=== PATIENT | female | born 1975 | race Caucasian/White ===

== ENCOUNTER 2018-09-12 06:37 | Inpatient (IN) ==
[2018-09-12] MEDS ORDERED: ACETAMINOPHEN 325 MG TABLET PO ONE ×2 (06:48→13:58)
[2018-09-12] MEDS ORDERED: 0.9 % SODIUM CHLORIDE 1,000 ML IV ONE (06:48)
[2018-09-12] MEDS ORDERED: METOCLOPRAMIDE 10 MG/2 ML VIAL IV ONE (07:20)
[2018-09-12 07:51] LABS: Basophils # (Auto) 0 K/mcL (0.0-0.3); Basophils % (Auto) 0.1 % (0.0-2.0); Eosinophils # (Auto) 0 K/mcL (0.0-0.7); Eosinophils % (Auto) 0.2 % (0.0-7.0); Granulocytes % (Auto) 81.1 % (38.0-78.0); Hematocrit 36.6 % (36.0-48.0); Hemoglobin 12.3 g/dL (12.0-15.0); Lymphocytes # (Auto) 0.8 K/mcL (1.5-4.8); Lymphocytes % (Auto) 6.1 % (15.5-49.0); Mean Cell Volume 91.3 fL (80.0-100.0); Mean Corpuscular HGB Conc 33.5 g/dL (31.0-36.0); Mean Platelet Volume 9.8 fL (7.4-10.4); Monocytes # (Auto) 1.6 K/mcL (0.1-0.9); Monocytes % (Auto) 12.5 % (1.0-12.0); Platelet Count 200 K/mcL (140-440); RBC 4.01 M/mcL (4.00-5.20); Red Cell Distribution Width 12.7 % (11.5-14.5); WBC 12.7 K/mcL (4.5-11.0)
--- NOTE | 2018-09-12 07:59 | XRay Report ---
CLINICAL INFORMATION: FEVER COMPARISON: None. FINDINGS: The heart size, mediastinum and pulmonary vessels are unremarkable. The lungs are clear. There are no effusions. The bones and soft tissues are within normal limits. IMPRESSION: Normal chest. Interpreted and Authenticated by: Manuel Sandoval 09/12/18
[2018-09-12 08:13] LABS: ALT/SGPT 74 U/l (0-40); AST/SGOT 119 U/l (0-37); Albumin 3.5 gm/dL (3.2-5.2); Alkaline Phosphatase 164 U/L (39-117); Bilirubin,Total 0.5 mg/dL (0.0-1.0); Blood Urea Nitrogen 5 mg/dl (6-20); Calcium 8.5 mg/dl (8.6-10.4); Carbon Dioxide 25 mmol/L (22-30); Chloride 95 mmol/L (96-108); Globulin 3.5 gm/dL (2.2-3.7); Glomerular Filtration Rate 92; Glucose 127 mg/dL (70-105); Potassium 3.4 mmol/L (3.3-5.1); Sodium 133 mmol/L (133-145)
--- NOTE | 2018-09-12 08:30 | Ultrasound Report ---
CLINICAL INFORMATION: Right flank mass COMPARISON: None. FINDINGS: There is no cyst, mass, inhomogeneous or other abnormality seen in the superficial soft tissues over the right flank IMPRESSION: Negative ultrasound. For any persistent, worrisome or recurrent signs/symptoms, suggest abdomen pelvic CT Interpreted and Authenticated by: Manuel Sandoval 09/12/18
--- NOTE | 2018-09-12 09:29 | Emergency Department Note ---
Fever HPI - General Chief Complaint: Fever Stated Complaint: fever Time Seen by Provider: 09/12/18 07:07 Source: patient Mode of arrival: ambulatory Limitations: no limitations - History of Present Illness HPI Narrative: This 43-year-old female comes emergency room with 5-day history of fever and headache with her headache becoming uncomfortable enough that she is here primarily because of this pain. She denies runny nose or sore throat. Has had a little cough. No diarrhea. [place] 4 [place]. Pain is located on the back top area. She describes it as 10 out of 10 in severity. It has had some waxing and waning. It is made it hard for her to sleep, sore to the point of not being able to lay on the back of her head very comfortably. She had a tick 2 to 3 weeks ago that was just in her hair and easily removed. It was not adherent. No known recent tick bite. No joint symptoms. Has mild light sensitivity and sound sensitivity. No dental abscess or discomfort or problems. Has felt the fevers at home with chills and sweats as well as some weakness and light headed/dizziness. REVIEW OF SYSTEMS: Denies chest pain Little cough, some sense of shortness of breath, no wheeze no phlegm No abdominal pain. Some nausea. No nausea vomiting, diarrhea, constipation, hematochezia No dysuria No back pain No anxiety or depression. - Related Data Home Medications Medication Instructions Recorded Confirmed Aleve 220Mg (Pp) 09/12/18 Tylenol 09/12/18 Allergies Allergy/AdvReac Type Severity Reaction Status Date / Time No Known Drug Allergies Allergy Unverified 09/12/18 06:41 Fever PMH - Past Medical History Medical history: Reports: other (DENIES: immunosuppressant status.). Denies: DVT, DM, migraine, seizures, thyroid disease Surgical history ED: Reports: no surgical history Psychiatric history: Denies: anxiety, depression - Social History smoking status: Current every day smoker Alcohol use: Reports: Frequently (About 1/5 every 2 weeks) Drug use: Reports: marijuana, methamphetamine. Denies: IVDU Physical Exam Limitations: no limitations General appearance: alert, in distress (Due to headache discomfort. Some ear fullness and look of consternation on her face.) Head: atraumatic, normocephalic Eye: Present: EOMI ENT: normal oropharynx, mucous membranes moist Neck: Present: trachea midline. Absent: lymphadenopathy, thyromegaly Chest: Present: symmetric chest wall rise Respiratory: Present: normal lung sounds bilaterally. Absent: respiratory distress, wheezes, stridor, accessory muscle use, prolonged expiratory phase Cardiovascular: Present: regular rate, normal rhythm. Absent: systolic murmur, diastolic murmur Abdominal: Present: soft. Absent: distention, tenderness, guarding, rebound, rigidity, organomegaly, mass Extremities: Absent: pedal edema, pretibial edema, calf tenderness Back: Present: other (Overlying the right costovertebral angle area is a soft tissue mass that is well-rounded and a single globule that is moderate-firm rubbery consistency that is partially adherent to the rib cage area, nontender without fluctuance specifically.). Absent: CVA tenderness (R), CVA tenderness (L), spinous process tenderness Neurological: Present: alert, oriented X3 Psychiatric: Present: serious, tearful (occasional ). Absent: depressed, agitated, anxious Skin: Present: warm, diaphoretic (slight or mildly) Course Vital Signs Temperature 102.7 F H 09/12/18 06:38 Pulse Rate 135 H 09/12/18 06:38 Respiratory Rate 24 H 09/12/18 06:38 Blood Pressure 112/65 09/12/18 06:38 Pulse Oximetry (%) 97 09/12/18 06:38 Temperature 102 F H 09/12/18 07:03 Pulse Rate 98 H 09/12/18 09:06 Respiratory Rate 18 09/12/18 09:06 Blood Pressure 112/64 09/12/18 09:01 Pulse Oximetry (%) 96 09/12/18 09:06 Fever - MDM Narrative Medical decision making narrative: 7:08 AM -febrile with headache patient of uncertain etiology. Will do fairly broad range of labs, and if needed imaging on her head. Regarding the neoplasm on her right flank we will start with ultrasound looking for cystic or fluid- filled lesion versus solid. 8:00 AM approximately - White count 12.7. Lactic acid 1.4. Liver function test with AST 119, ALT 74 alk phos 164 and bilirubin normal. Patient reports no history of hepatitis. UA was with some signs of infection. Chest x-ray is unremarkable. 8:20 AM - I discussed her case with radiology and with considerations for imagin g of her head. She had minimal symptoms on urinary tract therefore we will go ahead with imaging head and because of the elevated LFTs of the abdomen as well. 9 AM - above pending. Care transferred to Dr. Worthy who is coming on shift. - Medical Records Medical records reviewed: Yes I reviewed the patient's medical records. - Lab Data Lab results reviewed: Yes I reviewed the patient's lab results. Result diagrams: 09/12/18 07:00 09/12/18 06:50 Lab Results 09/12/18 09/12/18 09/12/18 Range/Units 06:50 06:50 07:00 WBC 12.7 H (4.5-11.0) K/mcL RBC 4.01 (4.00-5.20) M/mcL Hgb 12.3 (12.0-15.0) g/dL Hct 36.6 (36.0-48.0) % MCV 91.3 (80.0-100.0) fL MCH 30.6 (26.0-34.0) pg MCHC 33.5 (31.0-36.0) g/dL RDW 12.7 (11.5-14.5) % Plt Count 200 (140-440) K/mcL MPV 9.8 (7.4-10.4) fL Gran % 81.1 H (38.0-78.0) % Lymph % (Auto) 6.1 L (15.5-49.0) % [place] % (Auto) 12.5 H (1.0-12.0) % Eos % (Auto) 0.2 (0.0-7.0) % Baso % (Auto) 0.1 (0.0-2.0) % Gran # 10.3 H (1.8-8.0) K/mcL Lymph # (Auto) 0.8 L (1.5-4.8) K/mcL [place] # (Auto) 1.6 H (0.1-0.9) K/mcL Eos # (Auto) 0 (0.0-0.7) K/mcL Baso # (Auto) 0 (0.0-0.3) K/mcL VBG Lactic Acid 1.4 (0.5-2.0) mmol/L Sodium 133 (133-145) mmol/L Potassium 3.4 (3.3-5.1) mmol/L Chloride 95 L (96-108) mmol/L Carbon Dioxide 25 (22-30) mmol/L Anion Gap 13.0 (8-16) BUN 5 L (6-20) mg/dl Creatinine 0.8 (0.6-1.1) mg/dl GFR Calculation 92 Glucose 127 H (70-105) mg/dL Calcium 8.5 L (8.6-10.4) mg/dl Total Bilirubin 0.5 (0.0-1.0) mg/dL AST 119 H (0-37) U/l ALT 74 H (0-40) U/l Alkaline Phosphatase 164 H (39-117) U/L Total Protein 7.0 (5.9-8.4) gm/dL Albumin 3.5 (3.2-5.2) gm/dL Globulin 3.5 (2.2-3.7) gm/dL Albumin/Globulin Ratio 1.0 (1.0-2.3) - Radiology Data Radiology results reviewed: Yes I reviewed the patient's radiology results. Disposition Pt seen by MAINTENANCE SHOP CLERK/PA only: No Clinical Impression: Cigarette smoker, Tachycardia, Neoplasm of back Fever Qualifiers: Fever type: unspecified Qualified Code(s): R50.9 - Fever, unspecified Headache Qualifiers: Headache type: unspecified Headache chronicity pattern: acute headache Intractability: not intractable Qualified Code(s): R51 - Headache Disposition: Still a Patient Instructions: Cigarette Smoking and Your Health (GEN), How to Stop Smoking (ED), Methamphetamine Abuse (ED)
[2018-09-12] MEDS ORDERED: CIPROFLOXACIN 500 MG TABLET PO ONE (09:30)
[2018-09-12 09:35] LABS: Appearance,Urine CLOUDY; Bacteria,Urine MOD /hpf (0); Bilirubin,Urine NEG (NEG); Color,Urine YELLOW; Culture Indicated,Urine NO; Glucose,Urine (UA) NEGATIVE (NEG); Ketones,Urine NEG (NEG); Leukocyte Esterase,Urine 500 /uL (NEG); Mucus,Urine FEW /hpf (0); Nitrate,Urine POS (NEG); Protein,Urine 30 mg/dL (NEG); Specific Gravity,Urine 1.006 (1.000-1.035); Urine Amorphous Crystals FEW /hpf (0); Urine Blood 0.2 mg/dL (<0.03); Urine RBC 1 /hpf (0-1); Urine Squamous Epithelial Cell 9 /hpf (0-4); Urine WBC > 182 /hpf (0-4); Urobilinogen,Urine NEG (NEG)
--- NOTE | 2018-09-12 10:17 | Cat Scan Report ---
CLINICAL INFORMATION: Fever and headache COMPARISON: None. TECHNIQUE: 2.5 mm helical slices were obtained in the skull base to vertex. Following reconstruction, axial reformatted images were reviewed at bone and parenchymal windows. The exam was performed using radiation dose optimization techniques including, but not limited to, automated exposure control, adjustment of the mA and/or kV according to patient size and use of iterative reconstruction technique. FINDINGS: The ventricles, sulci, fissures, and cisterns are normal in size and configuration. No extra-axial fluid collections are identified. The cerebrum, brainstem and cerebellum are unremarkable. There is no evidence of hemorrhage, mass effect, or edema. Bone windows show no osseous abnormality. The frontal, ethmoid and sphenoid air cells are clear. Maxillary sinuses not visualized as at the expected standard head CT IMPRESSION: Normal head CT without contrast. Interpreted and Authenticated by: Manuel Sandoval 09/12/18
--- NOTE | 2018-09-12 10:38 | Cat Scan Report ---
CLINICAL INFORMATION: Fever COMPARISON: None. TECHNIQUE: Following enteric contrast, 80 cc of Isovue-300 were injected and 60 seconds later, 0.625 mm helical slices were obtained from the mid heart through the iliac crest. Following reconstructions, sagittal, coronal and axial reformations were processed. Exam was reviewed at bone, lung and soft tissue windows Eight minutes later repeat 0.625 mm helical slices were obtained through the kidneys.The exam was performed using radiation dose optimization techniques including, but not limited to, automated exposure control, adjustment of the mA and/or kV according to patient size and use of iterative reconstruction technique. FINDINGS: The lung bases are clear. There are no effusions. The visualized heart is normal. Images should the abdomen show the liver, gallbladder and bile ducts, both adrenal glands, spleen, pancreas and aorta, including aortic branches, are normal in size, configuration and attenuation without focal lesion. The stomach and visualized small/large bowel are unremarkable. There is no free air, free air, intraperitoneal fluid or adenopathy. The right kidney is mildly enlarged with inhomogeneous attenuation with mild perinephric fluid. There is also mild thickening of the transitional epithelium within the calyces and pelvis suggesting pyelonephritis. A 3.4 cm simple cyst projects from the inferior pole of the right kidney. There is a 1 cm simple cyst in the mid right kidney.In the left kidney, there is a 2.4 cm vague low-attenuation inhomogeneous parenchymal lesion is seen in in the posterior mid region. It is suspicious for focal nephritis. Incidental note: 6 x 4 cm benign lipoma in the posterior abdominal musculature - deep to the external oblique and standing the internal oblique. Bones and soft tissues of the upper abdominal wall are, otherwise, normal IMPRESSION: 1. Right kidney: Mildly enlarged with inhomogeneous attenuation, mild perinephric fluid attenuation with thickening of the transitional in the upper collecting system epithelium all compatible with right pyelonephritis. 2. 24 mm inhomogeneous low-attenuation lesion in posterior mid left kidney suspicious for early renal abscess development. Suggest follow-up ultrasound after initiating antibiotic treatment 3. 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 This was not evident on ultrasound Interpreted and Authenticated by: Manuel Sandoval 09/12/18
[2018-09-12] MEDS ORDERED: cefTRIAXone 2 GM in DEXTROSE 5% IN WATER 50 ML IV ONE (10:54)
--- NOTE | 2018-09-12 10:55 | Emergency Department Note ---
Fever HPI - General Chief Complaint: Fever Stated Complaint: fever Time Seen by Provider: 09/12/18 07:07 Source: patient Mode of arrival: ambulatory Limitations: no limitations - History of Present Illness HPI Narrative: Patient is checked out to me at shift change by Dr. Bueno. Patient has known fever with evidence of UTI. CT scan pending at the time of shift change - Related Data Home Medications Medication Instructions Recorded Confirmed No Known Home Meds 09/12/18 09/12/18 Allergies Allergy/AdvReac Type Severity Reaction Status Date / Time No Known Drug Allergies Allergy Unverified 09/12/18 06:41 Fever PMH - Past Medical History Medical history: Reports: other (DENIES: immunosuppressant status.). Denies: DVT, DM, migraine, seizures, thyroid disease Psychiatric history: Denies: anxiety, depression - Social History smoking status: Current every day smoker Alcohol use: Reports: Frequently (About 1/5 every 2 weeks) Drug use: Reports: marijuana, methamphetamine. Denies: IVDU Physical Exam Limitations: no limitations General appearance: alert, in distress (Due to headache discomfort. Some ear fullness and look of consternation on her face.) Course Vital Signs Temperature 102.7 F H 09/12/18 06:38 Pulse Rate 135 H 09/12/18 06:38 Respiratory Rate 24 H 09/12/18 06:38 Blood Pressure 112/65 09/12/18 06:38 Pulse Oximetry (%) 97 09/12/18 06:38 Temperature 98.3 F 09/12/18 09:39 Pulse Rate 101 H 09/12/18 11:19 Respiratory Rate 21 09/12/18 11:19 Blood Pressure 105/63 09/12/18 11:01 Pulse Oximetry (%) 99 09/12/18 11:19 Fever - Lab Data Lab results reviewed: Yes I reviewed the patient's lab results. Result diagrams: 09/12/18 07:00 09/12/18 06:50 Lab Results 09/12/18 09/12/18 09/12/18 Range/Units 06:50 06:50 07:00 WBC 12.7 H (4.5-11.0) K/mcL RBC 4.01 (4.00-5.20) M/mcL Hgb 12.3 (12.0-15.0) g/dL Hct 36.6 (36.0-48.0) % MCV 91.3 (80.0-100.0) fL MCH 30.6 (26.0-34.0) pg MCHC 33.5 (31.0-36.0) g/dL RDW 12.7 (11.5-14.5) % Plt Count 200 (140-440) K/mcL MPV 9.8 (7.4-10.4) fL Gran % 81.1 H (38.0-78.0) % Lymph % (Auto) 6.1 L (15.5-49.0) % [place] % (Auto) 12.5 H (1.0-12.0) % Eos % (Auto) 0.2 (0.0-7.0) % Baso % (Auto) 0.1 (0.0-2.0) % Gran # 10.3 H (1.8-8.0) K/mcL Lymph # (Auto) 0.8 L (1.5-4.8) K/mcL [place] # (Auto) 1.6 H (0.1-0.9) K/mcL Eos # (Auto) 0 (0.0-0.7) K/mcL Baso # (Auto) 0 (0.0-0.3) K/mcL VBG Lactic Acid 1.4 (0.5-2.0) mmol/L Sodium 133 (133-145) mmol/L Potassium 3.4 (3.3-5.1) mmol/L Chloride 95 L (96-108) mmol/L Carbon Dioxide 25 (22-30) mmol/L Anion Gap 13.0 (8-16) BUN 5 L (6-20) mg/dl Creatinine 0.8 (0.6-1.1) mg/dl GFR Calculation 92 Glucose 127 H (70-105) mg/dL Calcium 8.5 L (8.6-10.4) mg/dl Total Bilirubin 0.5 (0.0-1.0) mg/dL AST 119 H (0-37) U/l ALT 74 H (0-40) U/l Alkaline Phosphatase 164 H (39-117) U/L Total Protein 7.0 (5.9-8.4) gm/dL Albumin 3.5 (3.2-5.2) gm/dL Globulin 3.5 (2.2-3.7) gm/dL Albumin/Globulin Ratio 1.0 (1.0-2.3) Urine Color Urine Appearance Urine pH (5.0-9.0) Ur Specific [place] (1.000-1.035) Urine Protein (NEG) mg/dL Urine Glucose (UA) (NEG) mg/dL Urine Ketones (NEG) mg/dL Urine Occult Blood (<0.03) mg/dL Urine Nitrate (NEG) Urine Bilirubin (NEG) mg/dL Urine Urobilinogen (NEG) mg/dL Ur Leukocyte Esterase (NEG) /uL Urine RBC (0-1) /hpf Urine WBC (0-4) /hpf Ur Squamous Epith Cells (0-4) /hpf Amorphous Crystals (0) /hpf Urine Bacteria (0) /hpf Urine Mucus (0) /hpf Ur Culture Indicated? 09/12/18 Range/Units 08:43 WBC (4.5-11.0) K/mcL RBC (4.00-5.20) M/mcL Hgb (12.0-15.0) g/dL Hct (36.0-48.0) % MCV (80.0-100.0) fL MCH (26.0-34.0) pg MCHC (31.0-36.0) g/dL RDW (11.5-14.5) % Plt Count (140-440) K/mcL MPV (7.4-10.4) fL Gran % (38.0-78.0) % Lymph % (Auto) (15.5-49.0) % [place] % (Auto) (1.0-12.0) % Eos % (Auto) (0.0-7.0) % Baso % (Auto) (0.0-2.0) % Gran # (1.8-8.0) K/mcL Lymph # (Auto) (1.5-4.8) K/mcL [place] # (Auto) (0.1-0.9) K/mcL Eos # (Auto) (0.0-0.7) K/mcL Baso # (Auto) (0.0-0.3) K/mcL VBG Lactic Acid (0.5-2.0) mmol/L Sodium (133-145) mmol/L Potassium (3.3-5.1) mmol/L Chloride (96-108) mmol/L Carbon Dioxide (22-30) mmol/L Anion Gap (8-16) BUN (6-20) mg/dl Creatinine (0.6-1.1) mg/dl GFR Calculation Glucose (70-105) mg/dL Calcium (8.6-10.4) mg/dl Total Bilirubin (0.0-1.0) mg/dL AST (0-37) U/l ALT (0-40) U/l Alkaline Phosphatase (39-117) U/L Total Protein (5.9-8.4) gm/dL Albumin (3.2-5.2) gm/dL Globulin (2.2-3.7) gm/dL Albumin/Globulin Ratio (1.0-2.3) Urine Color Yellow Urine Appearance Cloudy Urine pH 6.0 (5.0-9.0) Ur Specific [place] 1.006 (1.000-1.035) Urine Protein 30 A (NEG) mg/dL Urine Glucose (UA) Negative (NEG) mg/dL Urine Ketones Neg (NEG) mg/dL Urine Occult Blood 0.2 A (<0.03) mg/dL Urine Nitrate Pos A (NEG) Urine Bilirubin Neg (NEG) mg/dL Urine Urobilinogen Neg (NEG) mg/dL Ur Leukocyte Esterase 500 A (NEG) /uL Urine RBC 1 (0-1) /hpf Urine WBC > 182 H (0-4) /hpf Ur Squamous Epith Cells 9 H (0-4) /hpf Amorphous Crystals Few A (0) /hpf Urine Bacteria Mod A (0) /hpf Urine Mucus Few (0) /hpf Ur Culture Indicated? No - Radiology Data Radiology results reviewed: Yes I reviewed the patient's radiology results. CT scan shows evidence of pyelonephritis with a kidney abscess as well. Disposition Pt seen by FINISHER CARD TENDER/PA only: No Clinical Impression: Cigarette smoker, Pyelonephritis, Kidney abscess Summary: Initially gave p.o. ciprofloxacin for presumed urinary tract infection while waiting for CT scan. Patient has already had blood cultures. Urine was sent for culture as well CT scan shows evidence of right-sided pyelonephritis as well as left-sided probable large kidney abscess forming. Recommendation is for IV antibiotics with follow-up CT scan to see if patient needs procedural drainage. Mass on patient's trunk is likely lipoma based on CT scan CT scan of the head was unremarkable Started IV ceftriaxone 2 g because of the pyelonephritis. Discussed results with patient. She is agreeable with hospital stay for IV antibiotic Discussed situation with Dr. Pineda, hospitalist. He agreed to admit the patient requested we start vancomycin and Zosyn. Disposition: Xfer As Inpt ([facility]) Condition: Serious Instructions: How to Stop Smoking (ED), Cigarette Smoking and Your Health (GEN), Methamphetamine Abuse (ED)
[2018-09-12] MEDS ORDERED: VANCOMYCIN 1,000 MG in 0.9 % SODIUM CHLORIDE 250 ML IV ONE (11:40)
[2018-09-12] MEDS ORDERED: PIPERACILLIN SODIUM/TAZOBACTAM 3.375 GM in DEXTROSE 5% IN WATER 50 ML IV ONE (11:40)
[2018-09-12] MEDS ORDERED: ACETAMINOPHEN 500 MG TABLET PO ONE (13:52)
[2018-09-12] MEDS ORDERED: POLYETHYLENE GLYCOL 3350 17 GM PACKET PO PRN (13:56)
[2018-09-12] MEDS ORDERED: VANCOMYCIN PER PHARMACY IV SCH (13:56)
[2018-09-12] MEDS ORDERED: ACETAMINOPHEN 325 MG TABLET PO PRN (13:56)
[2018-09-12] MEDS ORDERED: ACETAMINOPHEN 1,000 MG/100 ML BOTTLE IV PRN (13:56)
[2018-09-12] MEDS ORDERED: BISACODYL 10 MG SUPP.RECT PR PRN (13:56)
[2018-09-12] MEDS ORDERED: ONDANSETRON 4 MG/2 ML VIAL IV PRN (13:56)
[2018-09-12] MEDS ORDERED: PIPERACILLIN SODIUM/TAZOBACTAM 3.375 GM in DEXTROSE 5% IN WATER 50 ML IV SCH (13:56)
[2018-09-12] MEDS ORDERED: MAGNESIUM HYDROXIDE 30 ML ORAL.SUSP PO PRN (13:56)
[2018-09-12] MEDS ORDERED: POTASSIUM CHLORIDE 20 MEQ PACKET PO PRN (13:56)
[2018-09-12] MEDS ORDERED: MAGNESIUM SULFATE 2 GM/50 ML BAG IV PRN (13:56)
[2018-09-12 15:05] LABS: C-Reactive Protein 14.5 mg/dl (0.0-0.8)
--- NOTE | 2018-09-12 15:21 | Internal Med History&Physical ---
Medical - H&P: HPI Patient information: Note initiated : 09/12/18 at 3:18 pm Service Date, if different from initiated Date: [] Patient: Eliza Ortez a 43 y/o F admitted on 09/12/18 for Fever. Chief Complaint: [] Chief complaint: shaking chills, abdominal pain and fever History of present illness: Ms. Ortez is a 43 year old F who presents to the ER with 2 days' onset of fever with abdominal pain, headache, shaking chills and sweats along with dysuria. Initial workup was consistent with pyelonephritis with renal abscess on CT. CT head unremarkable. Patient was promptly started on broad antibiotic coverage in light of severe sepsis with end organ dysfunction including elevated LFTs. Blood cultures were sent. Hospitalist service was consulted in light of above At the time of evaluation patient is alert oriented. She is soaked in sweat. MAXIMUM TEMPERATURE 102.9. She denies substance abuse. She denies prior hospitalization for recurrent UTIs. Endorses to occipital headache without nausea vomiting, neck stiffness or unilateral weakness, incontinence. She denie s vaginal discharge, history of STDs. Review of systems A 10 point review of system was performed and is negative except as discussed above Medical - H&P: PMH Medical history: Nonsignificant Pertinent family history: Both parents with bone, lung cancer Social history: Smokes half a pack Drinks occasional alcohol No family in town Single Works as a [employer] Medical - H&P: Meds Home Medications Medication Instructions Recorded Confirmed Type No Known Home Meds 09/12/18 09/12/18 History Allergies Allergy/AdvReac Type Severity Reaction Status Date / Time No Known Drug Allergies Allergy Unverified 09/12/18 06:41 Medical - H&P: Exam - Constitutional Vitals: Temp Pulse Resp BP Pulse Ox 102.9 F H 114 H 20 110/69 95 09/12/18 13:56 09/12/18 12:31 09/12/18 13:56 09/12/18 13:56 09/12/18 13:56 General appearance: no acute distress Exam: Alert oriented Pupils symmetric Oral cavity dry Head normocephalic No ear or nose discharge Neck no lymphadenopathy S1 and S2 regular rhythm tachycardia Diminished breath sounds bilateral bases Abdomen soft nontender Lower extremity no cyanosis clubbing Skin no suspicious lesion Psych alert cooperative Neuro nonfocal Medical - H&P: Reslt - Labs CBC & Chem 7: 09/12/18 07:00 09/12/18 06:50 Labs: Short CBC 09/12/18 Range/Units 07:00 WBC 12.7 H (4.5-11.0) K/mcL Hgb 12.3 (12.0-15.0) g/dL Hct 36.6 (36.0-48.0) % Plt Count 200 (140-440) K/mcL BMP 09/12/18 06:50 Sodium 133 Potassium 3.4 Chloride 95 L Carbon Dioxide 25 BUN 5 L Creatinine 0.8 Glucose 127 H Calcium 8.5 L Liver Function 09/12/18 Range/Units 06:50 Total Bilirubin 0.5 (0.0-1.0) mg/dL AST 119 H (0-37) U/l ALT 74 H (0-40) U/l Alkaline Phosphatase 164 H (39-117) U/L Albumin 3.5 (3.2-5.2) gm/dL Urine 09/12/18 Range/Units 08:43 Urine Color Yellow Urine Appearance Cloudy Urine pH 6.0 (5.0-9.0) Ur Specific [place] 1.006 (1.000-1.035) Urine Protein 30 A (NEG) mg/dL Urine Glucose (UA) Negative (NEG) mg/dL Medical - H&P: A/P (1) Renal abscess, left Current visit: Yes Status: Acute * Left renal abscess-likely hematogenous seeding, start empiric coverage for gram-negative/staph aureus with vancomycin and Zosyn and de-escalate based on culture sensitivities. Infectious disease/ IR consultation for renal abscess drainage * Bilateral pyelonephritis-broad antibiotic coverage. * Severe sepsis with end organ dysfunction including elevated LFTs. Pancultures/prior antibiotics/crystalloid/management per guidelines. Will consult ID if positive blood cultures. * Headache/Abdominal pain, check MRI brain if persistent headache to rule out abscess. Continue antibiotic coverage. * Elevated LFTs-sepsis end organ dysfunction versus alcoholism. No CT evidence of cirrhosis * Prophylaxis heparin * Full code Plan * Sepsis management guidelines * ID/IR consultation for renal abscess drainage * Repeat renal ultrasound in 48 hours * Broad antibiotic coverage * MRI brain in 48 hours if persistent headache * Inpatient admit
[2018-09-12] MEDS: 0.9 % SODIUM CHLORIDE 1,000 ML IV SCH (15:32)
[2018-09-12] MEDS: 0.9 % SODIUM CHLORIDE 10 ML SYRINGE IV SCH ×2 (15:33→21:27)
[2018-09-12 16:03] LABS: Amphetamine Screen,Urine SUSPECT POSITIVE (NONDETECTED); Barbiturate Screen,Urine NONE DETECTED (NONDETECTED); Benzodiazepines Screen,Urine NONE DETECTED (NONDETECTED); Cannabinoid Screen,Urine SUSPECT POSITIVE (NONDETECTED); Cocaine Screen,Urine NONE DETECTED (NONDETECTED); Opiate Screen,Urine NONE DETECTED (NONDETECTED); Oxycodone, Urine Screen NONE DETECTED (NONDETECTED); Phencyclidine Screen,Urine NONE DETECTED (NONDETECTED)
[2018-09-12] MEDS: HYDROcodone/APAP 5/325MG TABLET PO PRN (17:37)
[2018-09-12] MEDS: PIPERACILLIN SODIUM/TAZOBACTAM 3.375 GM in DEXTROSE 5% IN WATER 50 ML IV SCH ×2 (17:37→23:50)
[2018-09-12] MEDS ORDERED: CIPROFLOXACIN 500 MG TABLET PO SCH (21:00)
[2018-09-12] MEDS: SENNOSIDES/DOCUSATE SODIUM 1 TAB TABLET PO SCH (21:23)
[2018-09-12] MEDS: HEPARIN 5,000 UNIT/ML VIAL SQ SCH (21:23)
[2018-09-12] MEDS: DOCUSATE SODIUM 100 MG CAPSULE PO SCH (21:23)
[2018-09-12] MEDS: VANCOMYCIN 1,000 MG in 0.9 % SODIUM CHLORIDE 250 ML IV SCH (21:26)
[2018-09-13] MEDS: HYDROcodone/APAP 5/325MG TABLET PO PRN ×3 (01:34→17:20)
[2018-09-13] MEDS: 0.9 % SODIUM CHLORIDE 1,000 ML IV SCH ×4 (03:45→21:27)
[2018-09-13] MEDS: 0.9 % SODIUM CHLORIDE 10 ML SYRINGE IV SCH ×2 (04:21→13:09)
[2018-09-13 05:28] LABS: Hematocrit 32.6 % (36.0-48.0); Hemoglobin 10.9 g/dL (12.0-15.0); Mean Cell Volume 92.1 fL (80.0-100.0); Mean Corpuscular HGB Conc 33.5 g/dL (31.0-36.0); Mean Platelet Volume 9.6 fL (7.4-10.4); Platelet Count 165 K/mcL (140-440); RBC 3.54 M/mcL (4.00-5.20); Red Cell Distribution Width 12.6 % (11.5-14.5); WBC 12.9 K/mcL (4.5-11.0)
[2018-09-13] MEDS: PIPERACILLIN SODIUM/TAZOBACTAM 3.375 GM in DEXTROSE 5% IN WATER 50 ML IV SCH ×3 (05:28→17:15)
[2018-09-13 05:32] LABS: ALT/SGPT 53 U/l (0-40); AST/SGOT 39 U/l (0-37); Albumin 2.7 gm/dL (3.2-5.2); Albumin/Globulin Ratio 0.8 (1.0-2.3); Alkaline Phosphatase 140 U/L (39-117); Bilirubin,Direct 0.2 mg/dL (0.0-0.3); Bilirubin,Total 0.4 mg/dL (0.0-1.0); Blood Urea Nitrogen 7 mg/dl (6-20); Carbon Dioxide 25 mmol/L (22-30); Chloride 101 mmol/L (96-108); Gamma Glutamyl Transpeptidase 64 U/L (5-36); Globulin 3.2 gm/dL (2.2-3.7); Glomerular Filtration Rate 92; Glucose 96 mg/dL (70-105); Lactate Dehydrogenase 128 U/L (94-250); Magnesium 1.7 mg/dL (1.6-2.5); Phosphorous 1.8 mg/dL (2.7-4.5); Potassium 3.8 mmol/L (3.3-5.1); Sodium 136 mmol/L (133-145); Triglycerides 59 mg/dl (<150); Uric Acid 1.7 mg/dL (2.5-8.0)
[2018-09-13 06:46] LABS: Band Neutrophils % 6 % (0-10); Lymphocytes % 11 % (15-49); Monocytes % (Manual) 8 % (1-12); Platelet Estimate NORMAL (NORMAL); RBC Morphology NORMAL (NORMAL); Segmented Neutrophils % 75 % (38-78)
[2018-09-13] MEDS: HEPARIN 5,000 UNIT/ML VIAL SQ SCH ×2 (09:05→21:27)
[2018-09-13] MEDS: DOCUSATE SODIUM 100 MG CAPSULE PO SCH ×2 (09:05→21:27)
[2018-09-13] MEDS: MULTIVIT,THER IRON,CA,FA & MIN 1 TABLET PO SCH (09:05)
[2018-09-13] MEDS: VANCOMYCIN 1,000 MG in 0.9 % SODIUM CHLORIDE 250 ML IV SCH ×2 (10:19→21:26)
[2018-09-13] MEDS: NEUTRA PHOS 1 PACKET PO SCH ×2 (10:26→21:26)
--- NOTE | 2018-09-13 12:12 | Internal Med Progress Note ---
Medical - PN: Subj Patient information: Note initiated : 09/13/18 at 12:09 pm Service Date, if different from initiated Date: [] Patient: Eliza Ortez a 43 y/o F admitted on 09/12/18 for Fever. Chief Complaint: [] Interval history: Ms. Ortez is a 43 year old F who presents to the ER with 2 days' onset of f ever with abdominal pain, headache, shaking chills and sweats along with dysuria. Initial workup was consistent with pyelonephritis with renal abscess on CT. CT head unremarkable. Patient was promptly started on broad antibiotic coverage in light of severe sepsis with end organ dysfunction including elevated LFTs. Blood cultures were sent. Hospitalist service was consulted in light of above At the time of evaluation patient is alert oriented. She is soaked in sweat. MAXIMUM TEMPERATURE 102.9. She denies substance abuse. She denies prior hospitalization for recurrent UTIs. Endorses to occipital headache without nausea vomiting, neck stiffness or unilateral weakness, incontinence. She denies vaginal discharge, history of STDs. 09/13-patient: Regular. Fever defervesced. White count plateaued at 12.9. Urine culture gram-negative hemant. Blood cultures pending. Phosphorus 1.8. Urine tox positive for amphetamines. Repeat ultrasound in a.m for evaluation of renal abscess/subsequent drainage. Continue existing treatment. - Constitutional Vitals: Vital Signs Temp Pulse Resp BP Pulse Ox 100.4 F H 93 H 20 94/58 95 09/13/18 08:00 09/13/18 03:56 09/13/18 08:00 09/13/18 08:00 09/13/18 08:00 Period Temp Pulse Resp BP Sys/Benitez Pulse Ox Last 24 Hr 98.4 F-102.9 F 83-117 16-23 87-156/54-84 92-99 Intake and Output 09/12/18 09/13/18 09/13/18 21:59 05:59 13:59 Intake Total 170 2416 290 Output Total 1250 250 700 Balance -1080 2166 -410 Weight 151 lb Intake & Output: Intake & Output 09/12/18 09/13/18 09/13/18 21:59 05:59 13:59 Intake Total 170 2416 290 Output Total 1250 250 700 Balance -1080 2166 -410 Weight 151 lb Intake: IV 50 1316 50 Sodium Chloride 0.9% 1,000 ml @ 966 100 mls/hr IV .Q10H [facility] Rx#: [id number] Zosyn 3.375 gm In Dextrose 5% 50 100 in Water 50 ml @ 100 mls/hr IV Q6H [facility] Rx#:[id number] Vancomycin 1,000 mg In Sodium 250 Chloride 0.9% 250 ml @ 250 mls/ hr IV Q12H [facility] Rx#:[id number] Oral 120 1100 240 Output: Void Amount 1250 250 700 Other: Meal Dinner Breakfast Percent of Meal Consumed 50% 100% Feeding Ability Independent Independent Urine Appearance Cloudy Urine Color Dark Yellow Dark Yellow Urine Odor Normal # Voids 1 General appearance: no acute distress Exam: Alert and oriented Nonlabored breathing Nondistended and nontender abdomen No lymphedema Minimal anxiety Medical - PN: Obj Da - Labs CBC & Chem 7: 09/13/18 04:10 09/13/18 04:10 Labs: Abnormal Lab Results 09/13/18 09/13/18 09/12/18 04:10 04:10 14:11 WBC 12.9 H RBC 3.54 L Hgb 10.9 L Hct 32.6 L Gran % Lymph % (Auto) [place] % (Auto) Gran # Lymph # (Auto) [place] # (Auto) Lymphocytes % 11 L ESR Chloride BUN Glucose Uric Acid 1.7 L Calcium 8.0 L Phosphorus 1.8 L GGT 64 H AST 39 H ALT 53 H Alkaline Phosphatase 140 H C-Reactive Protein 14.5 H Albumin 2.7 L Albumin/Globulin Ratio 0.8 L Urine Protein Urine Occult Blood Urine Nitrate Ur Leukocyte Esterase Urine WBC Ur Squamous Epith Cells Amorphous Crystals Urine Bacteria Ur Amphetamines Screen U Marijuana (THC) Screen 09/12/18 09/12/18 09/12/18 14:11 08:43 08:43 WBC RBC Hgb Hct Gran % Lymph % (Auto) [place] % (Auto) Gran # Lymph # (Auto) [place] # (Auto) Lymphocytes % ESR 70 H Chloride BUN Glucose Uric Acid Calcium Phosphorus GGT AST ALT Alkaline Phosphatase C-Reactive Protein Albumin Albumin/Globulin Ratio Urine Protein 30 A Urine Occult Blood 0.2 A Urine Nitrate Pos A Ur Leukocyte Esterase 500 A Urine WBC > 182 H Ur Squamous Epith Cells 9 H Amorphous Crystals Few A Urine Bacteria Mod A Ur Amphetamines Screen Suspect positive A U Marijuana (THC) Screen Suspect positive A 09/12/18 09/12/18 07:00 06:50 WBC 12.7 H RBC Hgb Hct Gran % 81.1 H Lymph % (Auto) 6.1 L [place] % (Auto) 12.5 H Gran # 10.3 H Lymph # (Auto) 0.8 L [place] # (Auto) 1.6 H Lymphocytes % ESR Chloride 95 L BUN 5 L Glucose 127 H Uric Acid Calcium 8.5 L Phosphorus GGT AST 119 H ALT 74 H Alkaline Phosphatase 164 H C-Reactive Protein Albumin Albumin/Globulin Ratio Urine Protein Urine Occult Blood Urine Nitrate Ur Leukocyte Esterase Urine WBC Ur Squamous Epith Cells Amorphous Crystals Urine Bacteria Ur Amphetamines Screen U Marijuana (THC) Screen Meds: Medications Acetaminophen (Tylenol) 650 mg PO Q4-6HP PRN PRN Reason: PAIN/FEVER > 101 Hydrocodone Bitart/Acetaminophen ([place] 5/325mg) 0 tab PO Q4HP PRN PRN Reason: PAIN LEVEL 3-6 Last Admin: 09/13/18 09:05 Dose: 2 tab Documented by: Bisacodyl (Dulcolax) 10 mg [place] Q2-3DAYS PRN PRN Reason: Constipation Docusate Sodium (Colace) 100 mg PO BID [facility] Last Admin: 09/13/18 09:05 Dose: 100 mg Documented by: Heparin Sodium (Porcine) (Heparin) 5,000 unit SQ Q12 [facility] Last Admin: 09/13/18 09:05 Dose: 5,000 unit Documented by: Magnesium Sulfate (Magnesium Sulfate) 2 gm in 50 mls @ 50 mls/hr IV UD PRN PRN Reason: MG = or < 1.7 Last Infusion: 09/13/18 10:09 Dose: Infused Documented by: Sodium Chloride (Sodium Chloride 0.9%) 1,000 mls @ 100 mls/hr IV .Q10H [facility] Last Admin: 09/13/18 10:27 Dose: Not Given Documented by: Acetaminophen (Ofirmev) 1,000 mg in 100 mls @ 200 mls/hr IV Q6HP PRN PRN Reason: PAIN/FEVER > 101 Piperacillin Sod/Tazobactam (Sod 3.375 gm/ Dextrose) 50 mls @ 100 mls/hr IV Q6H [facility]; Protocol Last Admin: 09/13/18 11:42 Dose: 100 mls/hr Documented by: Vancomycin HCl 1,000 mg/ (Sodium Chloride) 250 mls @ 250 mls/hr IV Q12H [facility] Last Admin: 09/13/18 10:19 Dose: 250 mls/hr Documented by: Iron Carb/Multivit/Ux Researcher/Folic Acid (Multivitamin W/Minerals) 1 tab PO DAILY [facility] Last Admin: 09/13/18 09:05 Dose: 1 tab Documented by: Magnesium Hydroxide (Milk Of Magnesia) 30 ml PO HSP PRN PRN Reason: Constipation Ondansetron HCl (Zofran) 4 mg IV Q4-6HP PRN PRN Reason: Nausea And Vomiting Polyethylene Glycol (Miralax) 17 gm PO DAILYP PRN PRN Reason: Constipation Potassium Chloride (Klor-Con) 40 meq PO DAILYP PRN PRN Reason: K+ < 3.5 Last Admin: 09/12/18 21:23 Dose: 40 meq Documented by: Potassium/Phosphorus/Sodium (Neutra Phos) 2 packet PO BID [facility] Last Admin: 09/13/18 10:26 Dose: 2 packet Documented by: Senna/Docusate Sodium (Senna Plus Tablet) 2 tab PO HS [facility] Last Admin: 09/12/18 21:23 Dose: 2 tab Documented by: Sodium Chloride (Saline Flush) 10 ml IV Q8 [facility] Last Admin: 09/13/18 04:21 Dose: Not Given Documented by: Vancomycin HCl (Vancomycin Per Pharmacy) 1 order IV UD [facility]; Protocol Medical - PN: A/P - Time Spent With Patient Total time spent is greater than 50% in coordination of care (as documented) at patient's floor/unit and/or counseling patient: 25 - 35 minutes (1) Renal abscess, left Status: Acute Assessment and plan: * Left renal abscess-likely hematogenous seeding, continue empiric coverage for gram-negative/staph aureus with vancomycin and Zosyn and de-escalate based on culture sensitivities. ID consulted. * Bilateral pyelonephritis/complicated GNR UTI-clinical improvement noted on broad antibiotic coverage. De-escalate based on sensitivities * Severe sepsis with end organ dysfunction including elevated LFTs. Clinically improving. Continue management per guidelines. Pancultures/prior antibiotics/crystalloid/management per guidelines. * Headache/Abdominal pain, clinically improved. * Elevated LFTs-sepsis end organ dysfunction versus alcoholism. Downtrending * Prophylaxis heparin * Full code Plan * Repeat ultrasound in 24 hours for evaluation of renal abscess/drainage continue * Broad antibiotic coverage Current Visit: Yes Medical - PN: Qual - VTE Deep Vein Thrombosis/Pulmonary Embolism Present on Admission: No
[2018-09-13] MEDS: SENNOSIDES/DOCUSATE SODIUM 1 TAB TABLET PO SCH (21:27)
[2018-09-14] MEDS: 0.9 % SODIUM CHLORIDE 10 ML SYRINGE IV SCH ×4 (00:04→21:40)
[2018-09-14] MEDS: HYDROcodone/APAP 5/325MG TABLET PO PRN ×4 (00:11→21:45)
[2018-09-14] MEDS: PIPERACILLIN SODIUM/TAZOBACTAM 3.375 GM in DEXTROSE 5% IN WATER 50 ML IV SCH ×5 (00:12→23:09)
[2018-09-14 05:15] LABS: Hematocrit 30.5 % (36.0-48.0); Hemoglobin 10.2 g/dL (12.0-15.0); Mean Cell Volume 91.8 fL (80.0-100.0); Mean Corpuscular HGB Conc 33.5 g/dL (31.0-36.0); Mean Platelet Volume 9.4 fL (7.4-10.4); Platelet Count 181 K/mcL (140-440); RBC 3.32 M/mcL (4.00-5.20); Red Cell Distribution Width 13.2 % (11.5-14.5); WBC 8.7 K/mcL (4.5-11.0)
[2018-09-14 05:36] LABS: ALT/SGPT 39 U/l (0-40); AST/SGOT 25 U/l (0-37); Albumin 2.4 gm/dL (3.2-5.2); Albumin/Globulin Ratio 0.7 (1.0-2.3); Alkaline Phosphatase 141 U/L (39-117); Bilirubin,Direct < 0.2 mg/dL (0.0-0.3); Bilirubin,Total 0.3 mg/dL (0.0-1.0); Blood Urea Nitrogen 5 mg/dl (6-20); Calcium 8.1 mg/dl (8.6-10.4); Carbon Dioxide 25 mmol/L (22-30); Chloride 107 mmol/L (96-108); Gamma Glutamyl Transpeptidase 60 U/L (5-36); Globulin 3.4 gm/dL (2.2-3.7); Glomerular Filtration Rate 108; Glucose 96 mg/dL (70-105); Lactate Dehydrogenase 153 U/L (94-250); Magnesium 2.3 mg/dL (1.6-2.5); Potassium 3.8 mmol/L (3.3-5.1); Sodium 141 mmol/L (133-145); Triglycerides 108 mg/dl (<150); Uric Acid 1.6 mg/dL (2.5-8.0)
[2018-09-14] MEDS: 0.9 % SODIUM CHLORIDE 1,000 ML IV SCH ×3 (05:37→19:49)
[2018-09-14 06:24] LABS: Band Neutrophils % 4 % (0-10); Eosinophils % (Manual) 1 % (0-7); Lymphocytes % 13 % (15-49); Monocytes % (Manual) 9 % (1-12); Platelet Estimate NORMAL (NORMAL); RBC Morphology NORMAL (NORMAL); Segmented Neutrophils % 73 % (38-78)
[2018-09-14] MEDS: MULTIVIT,THER IRON,CA,FA & MIN 1 TABLET PO SCH (08:09)
[2018-09-14] MEDS: HEPARIN 5,000 UNIT/ML VIAL SQ SCH ×2 (08:10→21:39)
[2018-09-14] MEDS: DOCUSATE SODIUM 100 MG CAPSULE PO SCH ×2 (08:26→21:39)
[2018-09-14] MEDS: NEUTRA PHOS 1 PACKET PO SCH ×2 (08:26→21:39)
[2018-09-14] MEDS: VANCOMYCIN 1,000 MG in 0.9 % SODIUM CHLORIDE 250 ML IV SCH ×2 (09:32→21:39)
--- NOTE | 2018-09-14 11:33 | Event Note ---
Consulted over the phone by Dr. Pineda about this patient for antibiotic recommendations. Pt is a 43-year old female with history of IV drug use, with 1/2 blood Cx growing alpha hemolytic Strept (pending ID and sensi), and urine Cx growing barkley sensitive E coli. Pt has been on IV vanc and IV Zosyn so far pending results of blood cx. CT abd at admission had raised concerns about perinepheric fluid collection. An US ordered today to assess progression of the fluid collection. Recs: Consider stopping current antibiotics and start PO Levofloxacin 750 mg q24. If US shows any fluid collection, consider IR-guided drainage and sending specimen for C/S. Will make final recommendations and follow with a full note in chart tomorrow.
--- NOTE | 2018-09-14 14:50 | Ultrasound Report ---
History: Fever and pyelonephritis versus abscess in left kidney FINDINGS: The right kidney measures 5.7 x 6.2 x 12.0 cm. The parenchyma is normal thickness and echogenicity. There is an exophytic simple cyst located anteriorly in the lower pole which measures 3.6 x 3.7 cm. Left kidney measures 5.3 x 5.5 x 12.6 cm. There is an ill-defined zone of altered parenchyma in the mid to lower portion of the kidney. Has indistinct margins and measures approximately 2 x 2.1 x 2.6 cm. This corresponds with the low-attenuation lesion seen on the CT scan dated 09/12/18. This is not liquefied and there is no perinephric fluid collection. The remainder the left kidney appears normal. There is no hydronephrosis in either kidney. Doppler shows flow urine through both ureters into the bladder. The bladder contained only with 41 cc of urine before voiding and is grossly normal. IMPRESSION: 2.0 x 2.6 cm vague hypoechoic structure in the cortex in the left kidney. This may be focal pyelonephritis. This is not an abscess and unlikely a neoplasm. Interpreted and Authenticated by: Julio César Rodriguez 09/14/18
[2018-09-14] MEDS: SENNOSIDES/DOCUSATE SODIUM 1 TAB TABLET PO SCH (21:39)
[2018-09-15] MEDS: 0.9 % SODIUM CHLORIDE 1,000 ML IV SCH (01:27)
[2018-09-15] MEDS: PIPERACILLIN SODIUM/TAZOBACTAM 3.375 GM in DEXTROSE 5% IN WATER 50 ML IV SCH ×2 (02:10→05:27)
[2018-09-15] MEDS: 0.9 % SODIUM CHLORIDE 10 ML SYRINGE IV SCH (05:27)
[2018-09-15 06:50] LABS: Hematocrit 29.3 % (36.0-48.0); Hemoglobin 9.8 g/dL (12.0-15.0); Mean Cell Volume 91.8 fL (80.0-100.0); Mean Corpuscular HGB Conc 33.3 g/dL (31.0-36.0); Mean Platelet Volume 9.4 fL (7.4-10.4); Platelet Count 192 K/mcL (140-440); RBC 3.19 M/mcL (4.00-5.20)
[2018-09-15 07:12] LABS: ALT/SGPT 31 U/l (0-40); AST/SGOT 17 U/l (0-37); Albumin 2.5 gm/dL (3.2-5.2); Albumin/Globulin Ratio 0.8 (1.0-2.3); Alkaline Phosphatase 134 U/L (39-117); Bilirubin,Direct < 0.2 mg/dL (0.0-0.3); Bilirubin,Total 0.3 mg/dL (0.0-1.0); Blood Urea Nitrogen 4 mg/dl (6-20); Calcium 8.2 mg/dl (8.6-10.4); Carbon Dioxide 27 mmol/L (22-30); Chloride 106 mmol/L (96-108); Globulin 3.2 gm/dL (2.2-3.7); Glomerular Filtration Rate 108; Glucose 92 mg/dL (70-105); Lactate Dehydrogenase 148 U/L (94-250); Phosphorous 3.6 mg/dL (2.7-4.5); Potassium 3.6 mmol/L (3.3-5.1); Sodium 144 mmol/L (133-145); Triglycerides 116 mg/dl (<150); Uric Acid 1.8 mg/dL (2.5-8.0)
[2018-09-15 07:39] LABS: Gamma Glutamyl Transpeptidase 60 U/L (5-36)
[2018-09-15 07:54] LABS: Band Neutrophils % 1 % (0-10); Eosinophils % (Manual) 3 % (0-7); Lymphocytes % 22 % (15-49); Monocytes % (Manual) 10 % (1-12); Platelet Estimate NORMAL (NORMAL); RBC Morphology NORMAL (NORMAL); Segmented Neutrophils % 64 % (38-78)
[2018-09-15] MEDS: HYDROcodone/APAP 5/325MG TABLET PO PRN (08:27)
[2018-09-15] MEDS: VANCOMYCIN 1,000 MG in 0.9 % SODIUM CHLORIDE 250 ML IV SCH (08:29)
[2018-09-15] MEDS: MULTIVIT,THER IRON,CA,FA & MIN 1 TABLET PO SCH (08:30)
[2018-09-15] MEDS: DOCUSATE SODIUM 100 MG CAPSULE PO SCH (08:30)
[2018-09-15] MEDS: NEUTRA PHOS 1 PACKET PO SCH (08:30)
[2018-09-15] MEDS: HEPARIN 5,000 UNIT/ML VIAL SQ SCH (08:30)
[2018-09-15] MEDS ORDERED: LEVOFLOXACIN 750 MG TABLET PO ONE (10:30)
--- NOTE | 2018-09-15 10:43 | Internal Med Progress Note ---
Medical - PN: Subj Patient information: Note initiated : 09/14/18 at 10:40 am Service Date, if different from initiated Date: [] Patient: Eliza Ortez a 43 y/o F admitted on 09/12/18 for Fever. Chief Complaint: [] Interval history: Ms. Ortez is a 43 year old F who presents to the ER with 2 days' onset of f ever with abdominal pain, headache, shaking chills and sweats along with dysuria. Initial workup was consistent with pyelonephritis with renal abscess on CT. CT head unremarkable. Patient was promptly started on broad antibiotic coverage in light of severe sepsis with end organ dysfunction including elevated LFTs. Blood cultures were sent. Hospitalist service was consulted in light of above At the time of evaluation patient is alert oriented. She is soaked in sweat. MAXIMUM TEMPERATURE 102.9. She denies substance abuse. She denies prior hospitalization for recurrent UTIs. Endorses to occipital headache without nausea vomiting, neck stiffness or unilateral weakness, incontinence. She denies vaginal discharge, history of STDs. 09/13-patient: Regular. Fever defervesced. White count plateaued at 12.9. Urine culture gram-negative hemant. Blood cultures pending. Phosphorus 1.8. Urine tox positive for amphetamines. Repeat ultrasound in a.m for evaluation of renal abscess/subsequent drainage. Continue existing treatment. 09/14- patient doing better. Gram-positive cocci alpha hemolytic streptococci on cultures. Case discussed with ID. Transition to Levaquin based on urine culture Escherichia coli. possible discharge in 24 hours. Renal ultrasound no evidence of abscess. Fever defervesced. White count normalized. Tachycardia resolved. - Constitutional Vitals: Vital Signs Temp Pulse Resp BP Pulse Ox 98.1 F 68 16 104/67 96 09/15/18 06:43 09/15/18 06:43 09/15/18 06:43 09/15/18 06:43 09/15/18 06:43 Period Temp Pulse Resp BP Sys/Benitez Pulse Ox Last 24 Hr 97.8 F-99.0 F 58-88 16-20 98-111/58-74 94-98 Intake and Output 09/14/18 09/15/18 09/15/18 21:59 05:59 13:59 Intake Total 2040 2300 250 Output Total 500 550 Balance 1540 1750 250 Weight 150 lb Intake & Output: Intake & Output 09/14/18 09/15/18 09/15/18 21:59 05:59 13:59 Intake Total 2040 2300 250 Output Total 500 550 Balance 1540 1750 250 Weight 150 lb Intake: IV 1000 1500 250 Sodium Chloride 0.9% 1,000 ml @ 1000 1000 100 mls/hr IV .Q10H [facility] Rx#: [id number] Zosyn 3.375 gm In Dextrose 5% 150 in Water 50 ml @ 100 mls/hr IV Q6H [facility] Rx#:[id number] Vancomycin 1,000 mg In Sodium 250 250 Chloride 0.9% 250 ml @ 250 mls/ hr IV Q12H [facility] Rx#:[id number] Oral 1040 800 Output: Void Amount 500 550 Other: Meal Dinner Percent of Meal Consumed 100% Feeding Ability Independent Urine Appearance Clear Urine Color Light [place] Stool Consistency Loose # Bowel Movements 1 General appearance: no acute distress Exam: Alert oriented nonlabored breathing No anxiety Nontender abdomen Medical - PN: Obj Da - Labs CBC & Chem 7: 09/15/18 04:45 09/15/18 04:45 Labs: Abnormal Lab Results 09/15/18 09/15/18 09/14/18 04:45 04:45 04:10 WBC RBC 3.19 L Hgb 9.8 L Hct 29.3 L Lymphocytes % ESR BUN 4 L 5 L Uric Acid 1.8 L 1.6 L Calcium 8.2 L 8.1 L Phosphorus GGT 60 H 60 H AST ALT Alkaline Phosphatase 134 H 141 H C-Reactive Protein Total Protein 5.7 L 5.8 L Albumin 2.5 L 2.4 L Albumin/Globulin Ratio 0.8 L 0.7 L Ur Amphetamines Screen U Marijuana (THC) Screen 09/14/18 09/13/18 09/13/18 04:10 04:10 04:10 WBC 12.9 H RBC 3.32 L 3.54 L Hgb 10.2 L 10.9 L Hct 30.5 L 32.6 L Lymphocytes % 13 L 11 L ESR BUN Uric Acid 1.7 L Calcium 8.0 L Phosphorus 1.8 L GGT 64 H AST 39 H ALT 53 H Alkaline Phosphatase 140 H C-Reactive Protein Total Protein Albumin 2.7 L Albumin/Globulin Ratio 0.8 L Ur Amphetamines Screen U Marijuana (THC) Screen 09/12/18 09/12/18 09/12/18 14:11 14:11 08:43 WBC RBC Hgb Hct Lymphocytes % ESR 70 H BUN Uric Acid Calcium Phosphorus GGT AST ALT Alkaline Phosphatase C-Reactive Protein 14.5 H Total Protein Albumin Albumin/Globulin Ratio Ur Amphetamines Screen Suspect positive A U Marijuana (THC) Screen Suspect positive A Meds: Medications Acetaminophen (Tylenol) 650 mg PO Q4-6HP PRN PRN Reason: PAIN/FEVER > 101 Hydrocodone Bitart/Acetaminophen ([place] 5/325mg) 0 tab PO Q4HP PRN PRN Reason: PAIN LEVEL 3-6 Last Admin: 09/15/18 08:27 Dose: 2 tab Documented by: Bisacodyl (Dulcolax) 10 mg [place] Q2-3DAYS PRN PRN Reason: Constipation Docusate Sodium (Colace) 100 mg PO BID [facility] Last Admin: 09/15/18 08:30 Dose: Not Given Documented by: Heparin Sodium (Porcine) (Heparin) 5,000 unit SQ Q12 [facility] Last Admin: 09/15/18 08:30 Dose: 5,000 unit Documented by: Magnesium Sulfate (Magnesium Sulfate) 2 gm in 50 mls @ 50 mls/hr IV UD PRN PRN Reason: MG = or < 1.7 Last Infusion: 09/13/18 10:09 Dose: Infused Documented by: Sodium Chloride (Sodium Chloride 0.9%) 1,000 mls @ 100 mls/hr IV .Q10H [facility] Last Infusion: 09/15/18 05:49 Dose: Infused Documented by: Acetaminophen (Ofirmev) 1,000 mg in 100 mls @ 200 mls/hr IV Q6HP PRN PRN Reason: PAIN/FEVER > 101 Last Infusion: 09/15/18 02:16 Dose: Infused Documented by: Iron Carb/Multivit/It Service Manager/Folic Acid (Multivitamin W/Minerals) 1 tab PO DAILY [facility] Last Admin: 09/15/18 08:30 Dose: 1 tab Documented by: Levofloxacin (Levaquin) 750 mg PO DAILY [facility]; Protocol Magnesium Hydroxide (Milk Of Magnesia) 30 ml PO HSP PRN PRN Reason: Constipation Ondansetron HCl (Zofran) 4 mg IV Q4-6HP PRN PRN Reason: Nausea And Vomiting Polyethylene Glycol (Miralax) 17 gm PO DAILYP PRN PRN Reason: Constipation Potassium Chloride (Klor-Con) 40 meq PO DAILYP PRN PRN Reason: K+ < 3.5 Last Admin: 09/12/18 21:23 Dose: 40 meq Documented by: Potassium/Phosphorus/Sodium (Neutra Phos) 2 packet PO BID [facility] Last Admin: 09/15/18 08:30 Dose: 2 packet Documented by: Senna/Docusate Sodium (Senna Plus Tablet) 2 tab PO HS [facility] Last Admin: 09/14/18 21:39 Dose: Not Given Documented by: Sodium Chloride (Saline Flush) 10 ml IV Q8 [facility] Last Admin: 09/15/18 05:27 Dose: Not Given Documented by: Medical - PN: A/P - Time Spent With Patient Total time spent is greater than 50% in coordination of care (as documented) at patient's floor/unit and/or counseling patient: 15 - 24 minutes (1) Renal abscess, left Status: Acute Assessment and plan: * GPC bacteremia-continue surveillance cultures. De-escalate antibiotic c overage to Levaquin as per ID recommendations * Bilateral pyelonephritis secondary to Escherichia coli-clinical improvement noted on broad antibiotic coverage. * Severe sepsis with end organ dysfunction including elevated LFTs. Clinically resolving management per guidelines. White count normalized. * Headache/Abdominal pain, clinically improved. * Elevated LFTs-sepsis end organ dysfunction versus alcoholism. Nearly normalized * Prophylaxis heparin * Full code Plan * De-escalate antibiotics as per ID recommendations * Repeat surveillance culture Current Visit: Yes Medical - PN: Qual - VTE Deep Vein Thrombosis/Pulmonary Embolism Present on Admission: No
--- NOTE | 2018-09-15 10:46 | Discharge Summary ---
Medical - DS: Prov Patient information: Note initiated : 09/15/18 at 10:44 am Service Date, if different from initiated Date: [] Patient: Eliza Ortez 43 y/o F admitted on 09/12/18 for Fever. Chief Complaint: [] Date of admission: 09/12/18 14:02 Discharge date: 09/15/18 Consults: 09/12/18 Consult to Physician [CONS] Stat Comment: Consulting Provider: Mark Pineda Reason For Exam: Physician to Consult 09/12/18 18:05 Consult to Infectious Disease [CONS] Routine Comment: Consulting Provider: Nickolas Boyer Reason For Exam: Physician to Consult Medical - DS: Meds - Discharge Medications Prescriptions: Acetaminophen [Tylenol] 650 mg PO Q4-6HP PRN #30 tab PRN Reason: Pain/Fever > 101 Levofloxacin [Levaquin] 750 mg PO DAILY #8 tab Active and Home Medications: Home Medications Acetaminophen [Tylenol] 650 mg PO Q4-6HP PRN #30 tab 09/15/18 [Rx Last Taken Unknown] Levofloxacin [Levaquin] 750 mg PO DAILY #8 tab 09/15/18 [Rx Last Taken Unknown] Medical - DS: Hosp Hospital course: Discharge diagnosis * Streptococcal bacteremia -negative surveillance cultures. Unclear source however clinical resolution noted on broad antibiotic coverage. Continue additional 8 days Levaquin as per ID specialist. * Bilateral pyelonephritis secondary to Escherichia coli. Clinically improved. Continue additional 8 days antibiotics. * Severe sepsis with end organ dysfunction clinically resolved. * Headache/Abdominal pain, clinically improved. * Elevated LFTs -clinically improved. Brief hospital course Ms. Ortez is a 43 year old F who presents to the ER with 2 days' onset of fever with abdominal pain, headache, shaking chills and sweats along with d ysuria. Initial workup was consistent with pyelonephritis with renal abscess on CT. CT head unremarkable. Patient was promptly started on broad antibiotic coverage in light of severe sepsis with end organ dysfunction including elevated LFTs. Blood cultures were sent. Hospitalist service was consulted in light of above At the time of evaluation patient is alert oriented. She is soaked in sweat. MAXIMUM TEMPERATURE 102.9. She denies substance abuse. She denies prior hospitalization for recurrent UTIs. Endorses to occipital headache without nausea vomiting, neck stiffness or unilateral weakness, incontinence. She denies vaginal discharge, history of STDs. 09/13-patient: Regular. Fever defervesced. White count plateaued at 12.9. Urine culture gram-negative hemant. Blood cultures pending. Phosphorus 1.8. Urine tox positive for amphetamines. Repeat ultrasound in a.m for evaluation of renal abscess/subsequent drainage. Continue existing treatment. 09/14- patient doing better. Gram-positive cocci alpha hemolytic streptococci on cultures. Case discussed with ID. Transition to Levaquin based on urine culture Escherichia coli. possible discharge in 24 hours. Renal ultrasound no evidence of abscess. Fever defervesced. White count normalized. Tachycardia resolved. 09/15-patient doing well. No overnight events. No concerns or staff chills nausea vomiting. Abdominal pain resolved. Discharging on additional 8 days of oral Levaquin as per ID specialist. Advised to refrain from methamphetamine IV drug use. Discharge diagnosis: . - Time Spent with Patient Total time spent providing and/or coordinating discharge services: Greater than 30 minutes Medical - DS: Exam - Constitutional Vitals: Vital Signs Temp Pulse Resp BP BP Pulse Ox 09/15/18 06:43 98.1 F 68 16 104/67 96 09/15/18 04:00 97.8 F 58 L 16 103/74 94 09/15/18 00:00 98.8 F 88 20 101/63 96 09/14/18 18:44 99.0 F 79 20 105/67 98 09/14/18 16:00 97.8 F 88 16 111/72 97 09/14/18 12:00 98.3 F 88 16 98/58 97 Intake and Output 09/14/18 09/15/18 09/15/18 21:59 05:59 13:59 Intake Total 2040 2300 250 Output Total 500 550 Balance 1540 1750 250 Intake: IV 1000 1500 250 Sodium Chloride 0.9% 1,000 ml @ 1000 1000 100 mls/hr IV .Q10H [facility] Rx#: [id number] Zosyn 3.375 gm In Dextrose 5% 150 in Water 50 ml @ 100 mls/hr IV Q6H [facility] Rx#:[id number] Vancomycin 1,000 mg In Sodium 250 250 Chloride 0.9% 250 ml @ 250 mls/ hr IV Q12H [facility] Rx#:[id number] Oral 1040 800 Output: Void Amount 500 550 Other: Meal Dinner Percent of Meal Consumed 100% Feeding Ability Independent Urine Appearance Clear Urine Color Light [place] Stool Consistency Loose # Bowel Movements 1 Weight 150 lb Medical - DS: Data Labs on day of discharge: Labs from last 24 hours 09/15/18 09/15/18 04:45 04:45 WBC 6.0 RBC 3.19 L Hgb 9.8 L Hct 29.3 L MCV 91.8 MCH 30.6 MCHC 33.3 RDW 13.0 Plt Count 192 MPV 9.4 Total Counted 100 Seg Neutrophils % 64 Band Neutrophils % 1 Lymphocytes % 22 Monocytes % (Manual) 10 Eosinophils % (Manual) 3 Platelet Estimate Normal RBC Morphology Normal Sodium 144 Potassium 3.6 Chloride 106 Carbon Dioxide 27 Anion Gap 11.0 BUN 4 L Creatinine 0.7 GFR Calculation 108 Glucose 92 Uric Acid 1.8 L Calcium 8.2 L Phosphorus 3.6 Magnesium 2.0 Total Bilirubin 0.3 Direct Bilirubin < 0.2 GGT 60 H AST 17 ALT 31 Alkaline Phosphatase 134 H Lactate Dehydrogenase 148 Total Protein 5.7 L Albumin 2.5 L Globulin 3.2 Albumin/Globulin Ratio 0.8 L Triglycerides 116 Preliminary micro results at discharge 09/12/18 07:05 Blood Culture - Preliminary Blood 09/14/18 04:10 Blood Culture - Preliminary Blood 09/14/18 04:17 Blood Culture - Preliminary Blood 09/13/18 17:18 Blood Culture - Preliminary Blood 09/13/18 17:30 Blood Culture - Preliminary Blood 09/12/18 07:00 Blood Culture - Preliminary Blood Gram positive cocci Medical - DS: A/P - Patient/Caregiver Discharge Instructions Activity: increase activity as tolerated Diet: Regular Diet Additional Instructions: Continue Levaquin for additional 8 days The patient for methamphetamine use Follow-up PCP in 10 days Return to ER if worsening abdominal pain nausea vomiting, dysuria, shaking chills Prescriptions: Acetaminophen [Tylenol] 650 mg PO Q4-6HP PRN #30 tab PRN Reason: Pain/Fever > 101 Levofloxacin [Levaquin] 750 mg PO DAILY #8 tab - Problem Maintenance (1) Renal abscess, left Status: Acute - Follow up Plan Disposition: Home, Self-Care Prognosis: Serious Rehab Potential: Fair I certify that the patient requires SNF services: No Overall status at discharge: patient is back to baseline Medical - DS: Qual - VTE Deep Vein Thrombosis/Pulmonary Embolism Present on Admission: No
--- NOTE | 2018-09-15 13:04 | Infectious Disease Consult ---
History of Present Illness Patient information: Note initiated : 09/15/18 at 12:43 pm Service Date, if different from initiated Date: [] Patient: Eliza Ortez 43 y/o F admitted on 09/12/18 for Fever. Chief Complaint: [] Consult date: 09/15/18 Requesting Physician: Mark Pineda Reason for Consult: Gram-positive bacteremia and E. coli complicated UTI Chief complaint: My head hurts History of present illness: 43 year old lady with past history of: - meth use Pt was admitted on 09/12 with c/o severe headache and fevers going on for last 2-3 days. She also had symptoms of b/l flank pain and burning while urination. Pt reported using meth few days prior to onset of symptoms. had not been sexually active for few months. [place] in [place] when the symptoms started. At presentation, her temp was 102.7F, HR 135, BP 112/65 and O2 sats of 97% on room air. She had blood Cx, urine Cx sent. She was started on IV Zosyn initially and IV vanc was added later in the day. CT head was neg, CT abd/pelvis showed right sided pyelonephritis with possibility of an early abscess development on left side. White count 12.7. Lactic acid 1.4. Liver function test with AST 119, ALT 74 alk phos 164 and bilirubin normal. Pt's fever defervesced the next day with WBC declining towards normal. Urine cu lture grew Ecoli (barkley sensitive) and blood Cx grew alpha hemolytic strept (per Micro: Viridans strept, neg for Strept anginosus, Gp B Strept). Pt underwent repeat US of kidneys on 09/14, which was negative for any abscess but suggested possible focal pyelonepheritis. At time of visit today, pt confirmed the above history. She still has some headache. She denies any fever, chills, nausea, vomiting, diarrhea, burning while urination. She feels her flank pain is completely gone. She denies any other symptoms. Discussed with her plan to de-escalate her antibiotics to oral levofloxacin. Patient voices understanding Review of Systems All systems PM: reviewed and no additional remarkable complaints except as stated Past History Past family history: Lives in [place], recently moved from [place] Past social history: Smokes about 2 to 3 cigarettes daily, has few drinks of whiskey every other day, episodic meth use Medications and Allergies Home Medications Medication Instructions Recorded Confirmed Type Acetaminophen [Tylenol] 650 mg PO Q4-6HP PRN #30 tab 09/15/18 Rx Levofloxacin [Levaquin] 750 mg PO DAILY #8 tab 09/15/18 Rx Allergies Allergy/AdvReac Type Severity Reaction Status Date / Time No Known Drug Allergies Allergy Verified 09/12/18 16:26 Physical Examination Vital signs: Temp Pulse Resp BP Pulse Ox 36.7 C 68 16 104/67 96 09/15/18 06:43 09/15/18 06:43 09/15/18 06:43 09/15/18 06:43 09/15/18 06:43 General appearance: no acute distress Eyes pulmonary: nonicteric ENT: other (Has multiple carious teeth, no thrush) Auscultation: bilateral: clear Cardiovascular: other (S1-S2 normal) Gastrointestinal: normoactive bowel sounds, soft, non-tender Integumentary: other (Has a lot of tattoos all over body) Extremities: no edema Gait: other (No point tenderness over vertebral spine, no CVA tenderness) Results - Laboratory Findings CBC and BMP: 09/15/18 04:45 09/15/18 04:45 Abnormal lab findings: Abnormal Labs 09/12/18 09/12/18 09/12/18 06:50 07:00 08:43 WBC 12.7 H RBC Hgb Hct Gran % 81.1 H Lymph % (Auto) 6.1 L Arthur % (Auto) 12.5 H Gran # 10.3 H Lymph # (Auto) 0.8 L Arthur # (Auto) 1.6 H Lymphocytes % ESR Chloride 95 L BUN 5 L Glucose 127 H Uric Acid Calcium 8.5 L Phosphorus GGT AST 119 H ALT 74 H Alkaline Phosphatase 164 H C-Reactive Protein Total Protein Albumin Albumin/Globulin Ratio Urine Protein 30 A Urine Occult Blood 0.2 A Urine Nitrate Pos A Ur Leukocyte Esterase 500 A Urine WBC > 182 H Ur Squamous Epith Cells 9 H Amorphous Crystals Few A Urine Bacteria Mod A Ur Amphetamines Screen U Marijuana (THC) Screen 09/12/18 09/12/18 09/12/18 08:43 14:11 14:11 WBC RBC Hgb Hct Gran % Lymph % (Auto) Arthur % (Auto) Gran # Lymph # (Auto) Arthur # (Auto) Lymphocytes % ESR 70 H Chloride BUN Glucose Uric Acid Calcium Phosphorus GGT AST ALT Alkaline Phosphatase C-Reactive Protein 14.5 H Total Protein Albumin Albumin/Globulin Ratio Urine Protein Urine Occult Blood Urine Nitrate Ur Leukocyte Esterase Urine WBC Ur Squamous Epith Cells Amorphous Crystals Urine Bacteria Ur Amphetamines Screen Suspect positive A U Marijuana (THC) Screen Suspect positive A 09/13/18 09/13/18 09/14/18 04:10 04:10 04:10 WBC 12.9 H RBC 3.54 L 3.32 L Hgb 10.9 L 10.2 L Hct 32.6 L 30.5 L Gran % Lymph % (Auto) Arthur % (Auto) Gran # Lymph # (Auto) Arthur # (Auto) Lymphocytes % 11 L 13 L ESR Chloride BUN Glucose Uric Acid 1.7 L Calcium 8.0 L Phosphorus 1.8 L GGT 64 H AST 39 H ALT 53 H Alkaline Phosphatase 140 H C-Reactive Protein Total Protein Albumin 2.7 L Albumin/Globulin Ratio 0.8 L Urine Protein Urine Occult Blood Urine Nitrate Ur Leukocyte Esterase Urine WBC Ur Squamous Epith Cells Amorphous Crystals Urine Bacteria Ur Amphetamines Screen U Marijuana (THC) Screen 09/14/18 09/15/18 09/15/18 04:10 04:45 04:45 WBC RBC 3.19 L Hgb 9.8 L Hct 29.3 L Gran % Lymph % (Auto) Arthur % (Auto) Gran # Lymph # (Auto) Arthur # (Auto) Lymphocytes % ESR Chloride BUN 5 L 4 L Glucose Uric Acid 1.6 L 1.8 L Calcium 8.1 L 8.2 L Phosphorus GGT 60 H 60 H AST ALT Alkaline Phosphatase 141 H 134 H C-Reactive Protein Total Protein 5.8 L 5.7 L Albumin 2.4 L 2.5 L Albumin/Globulin Ratio 0.7 L 0.8 L Urine Protein Urine Occult Blood Urine Nitrate Ur Leukocyte Esterase Urine WBC Ur Squamous Epith Cells Amorphous Crystals Urine Bacteria Ur Amphetamines Screen U Marijuana (THC) Screen Microbiology: Microbiology 09/12/18 07:05 Blood Blood Culture - Preliminary 09/14/18 04:10 Blood Blood Culture - Preliminary 09/14/18 04:17 Blood Blood Culture - Preliminary 09/13/18 17:18 Blood Blood Culture - Preliminary 09/13/18 17:30 Blood Blood Culture - Preliminary 09/12/18 08:43 Urine - Clean Void Mid-Stream Urine Culture - Final Escherichia coli 09/12/18 07:00 Blood Blood Culture - Preliminary Gram positive cocci Assessment and Plan - Narrative A/P Narrative: Assessment: 1. E. coli pyelonephritis, bilateral, community-acquired Clinical symptoms resolving 2. Streptococcus viridans isolated from 1 out of 2 blood cultures: Likely contaminant as repeat cultures are positive Would be covered with current antibiotic treatment 3. Risk factors for HIV and hep C: We will order screening Recommendations: Stop IV vancomycin and IV Zosyn Start p.o. levofloxacin 750 mg every 24 hours for 7 days [stop date of 09/22/18] Will order HIV and hep C serologies Patient counseled about quitting drinking, meth use No ID follow-up needed unless patient has positive HIV or hep C serologies or has new signs and symptoms of infection Nickolas Boyer MD Infectious disease
[2018-09-16] MEDS ORDERED: LEVOFLOXACIN 750 MG TABLET PO SCH (09:00)
[2018-09-19 10:16] LABS: Cannabinoid Confirmation POSITIVE (N)
== END 2018-09-15 13:25 | disposition home or self-care (01) | DRG 872 ==
LOC: ED 06:37 → MEDSUR 14:00
PROVIDERS: ADMIT Internal Medicine; ATTEND Internal Medicine